=== PATIENT | male | born 1985 | race Caucasian/White ===

== ENCOUNTER 2018-08-30 08:21 | Emergency (ER) | payer BC ==
[~2018-08-30] VITALS: Ht 167.6 cm; Wt 70.8 kg
[~2018-08-30 08:21] MED LIST: AUGMENTIN 875875 MG PO; CLARITIN10 MG PO; DARVOCET N 1001 TAB PO; DAYPRO600 M1 PO; IBUPROFEN600 MG PO; KEFLEX500 MG PO; MOTRIN800 MG PO; NASONEX0.05 MG/AC NAS; PEN-VEE K500 MG PO; ROBAXIN750 MG PO; ZITHROMAX Z PA250 MG PO; ZOFRAN ODT4 MG SL
[2018-08-30] MEDS ORDERED: CYCLOBENZAPRINE10 MG PO (11:34)
[2018-08-30] MEDS ORDERED: MEDROL DOSEPAK4 MG PO (11:34)
[2018-08-30] MEDS ORDERED: Motrin,Rufen800 MG PO (11:34)
== END 2018-08-30 11:41 | disposition home or self-care (01) ==
LOC: ED 08:21
DX: S16.1XXA Strain of muscle, fascia and tendon at neck level, initial encounter (principal); M25.512 Pain in left shoulder; M54.6 Pain in thoracic spine; X58.XXXA Exposure to other specified factors, initial encounter; Y93.89 Activity, other specified; Y92.89 Other specified places as the place of occurrence of the external cause; Y99.8 Other external cause status

== ENCOUNTER → 2019-05-27 | Outpatient (CLI) | payer BC ==
[~2019-05-27] MED LIST changes: +CYCLOBENZAPRINE10 MG PO; +MEDROL DOSEPAK4 MG PO; +Motrin,Rufen800 MG PO
[2019-05-27 08:44] LABS: BASO # 0.1 10*3/uL (0.0-0.1); BASO % 0.6 % (0.0-1.0); EOS # 0.2 10*3/uL (0.0-0.4); HEMATOCRIT 49.3 % (42.0-52.0); HEMOGLOBIN 16.4 g/dl (14.0-18.0); LYMPH # 2.8 10*3/uL (1.3-4.4); LYMPH % 30.8 % (27.0-41.0); MEAN CELL VOLUME 99.6 fl (80.0-94.0); MEAN CORPUSCULAR HGB 33.1 pg (27.0-31.0); MEAN CORPUSCULAR HGB CONC 33.3 g/dl (33.0-37.0); MEAN PLATELET VOLUME 12.7 fl (9.6-12.3); MONO # 0.8 10*3/uL (0.1-1.0); MONO % 8.9 % (3.0-9.0); NEUT # 5.2 10*3/uL (2.3-7.9); NEUT % 57.5 % (47.0-73.0); PLATELET COUNT AUTOMATED 195 10*3/uL (130-400); RED BLOOD COUNT 4.95 10*6/uL (4.50-5.90); RED CELL DISTRI WIDTH 13.7 % (0-14.5)
[2019-05-27 09:10] LABS: ALBUMIN 3.8 gm/dl (3.1-4.5); BUN 10 mg/dl (7-24); CHLORIDE 112 mmol/L (98-107); CHOLESTEROL 157 mg/dL (<200); CREATININE 0.92 mg/dL (0.70-1.30); POTASSIUM 4.4 mmol/L (3.5-5.1); SGOT/AST 15 IU/L (3-35); SGPT/ALT 34 U/L (12-78); SODIUM 142 mmol/L (136-145); TRIGLYCERIDES 87 mg/dl (<150); VLDL CHOLESTEROL 17 mg/dL (6-40)
[2019-05-27 09:20] LABS: ALKALINE PHOSPHATASE 56 U/L (45-117); HDL CHOLESTEROL 47 mg/dl (40-60); LDL CHOLESTEROL 93 mg/dL (9-159)
== END | disposition home or self-care (01) ==
LOC: LAB 08:03
PROVIDERS: Family Medicine
DX: Z00.00 Encounter for general adult medical examination without abnormal findings (principal); E55.9 Vitamin D deficiency, unspecified

== ENCOUNTER 2020-07-04 10:08 | Emergency (ER) | payer BC ==
[~2020-07-04] VITALS: Wt 71.7 kg
[2020-07-04] MEDS ORDERED: SEPTDS PO (11:46)
[2020-07-04] MEDS ORDERED: Bactroban Oint22 GM T (11:46)
[2020-07-04] MEDS ORDERED: IBUPROFEN600 MG PO (11:46)
== END 2020-07-04 13:31 ==
LOC: ED 10:08
DX: J34.0 Abscess, furuncle and carbuncle of nose (principal)

== ENCOUNTER 2021-09-26 23:48 | Emergency (ER) | payer OTHER, BC ==
[~2021-09-26] VITALS: Ht 172.7 cm; Wt 83.9 kg
[~2021-09-26 23:48] MED LIST changes: +Bactroban Oint22 GM T; +SEPTDS PO
== END 2021-09-27 00:27 | disposition left against medical advice (07) ==
LOC: ED 23:48
DX: S01.81XA Laceration without foreign body of other part of head, initial encounter (principal); Z79.899 Other long term (current) drug therapy; W22.8XXA Striking against or struck by other objects, initial encounter; Y93.89 Activity, other specified; Y92.89 Other specified places as the place of occurrence of the external cause; Y99.9 Unspecified external cause status

== ENCOUNTER 2025-01-22 10:18 | Emergency (ER) | payer BC ==
[2025-01-22] MEDS ORDERED: MELOXICAM15 MG PO ×2 (13:33→13:42)
== END 2025-01-22 13:41 | disposition home or self-care (01) ==
LOC: ED 10:18
DX: M25.561 Pain in right knee (principal); R22.41 Localized swelling, mass and lump, right lower limb